=== PATIENT | female | born 1990 | race Caucasian/White ===

== ENCOUNTER 2023-04-05 18:54 | Observation (INO) | payer OTHER, SELFPAY ==
--- NOTE | 2023-04-05 19:06 | PC.NURSE ---
Pt. Arrived to floor with EMT at 19:01
[2023-04-05 19:13] VITALS: BMI 41.5
[2023-04-05 19:23] LABS: Coronavirus 19, PCR Not Detected (NotDetected); Influenza A, PCR Not Detected (NotDetected); Influenza B, PCR Not Detected (NotDetected)
[2023-04-05 19:30] VITALS: BP 143/90; PULSE 98; RESP 16; TEMP 37.4; O2SAT 97
[2023-04-05 19:42] LABS: Basophils % 0.3 % (0.1-2.0); Eosinophils # 0.2 K/mm3 (0.0-0.4); Eosinophils % 1.4 % (0.1-12.0); Hematocrit 44.2 % (37.0-47.0); Hemoglobin 14.6 g/dL (12.2-16.2); Lymphocytes # 1.2 K/mm3 (0.7-4.5); Lymphocytes % 8.3 % (10-50); Mean Corpuscular Hemoglobin 28.8 pg (27.0-31.2); Mean Corpuscular Volume 87.2 fl (81-99); Mean Platelet Volume 9.6 fl (7.4-10.4); Monocytes # 0.4 K/mm3 (0.1-1.0); Monocytes % 2.6 % (1.7-9.3); Neutrophils # 12.3 K/mm3 (1.8-7.8); Neutrophils % 87.4 % (37.0-80.0); Platelet Count 251 K/mm3 (142-424); Red Blood Count 5.06 M/mm3 (4.20-5.40)
[2023-04-05 19:45] LABS: MANUAL DIFFERENTIAL MANUAL DIFFERENTIAL (MANUAL DIFF)
[2023-04-05 19:52] LABS: Alanine Aminotransferase 29 U/L (12-78); Albumin Level 4.5 g/dl (3.5-5.0); Albumin/Globulin Ratio 1.7 (1.1-1.8); Alkaline Phosphatase 73 U/L (38-126); Anion Gap 18.6 mEq/L (5-15); Aspartate Amino Transferase 34 U/L (14-36); Bilirubin,Total 0.6 mg/dl (0.2-1.3); Blood Urea Nitrogen 5 mg/dl (7-17); Carbon Dioxide 24 mmol/L (22.0-30.0); Chloride 101 mmol/L (98-107); Creatinine Clearance Estimated 102 mL/min (50-200); Estimated Glomerular Filt Rate 96 ml/min (>60); GFR (African American) 116 ML/MIN (>60); Globulin 2.6 g/dL (1.3-3.2); Glucose 105 mg/dl (74-100); Magnesium 2.1 mg/dl (1.6-2.3); Potassium 3.6 mmoL/L (3.5-5.1); Sodium 140 mmol/L (136-145); Total Protein,Serum 7.1 g/dl (6.3-8.2)
[2023-04-05 20:00] VITALS: BP 164/93; PULSE 90; PULSE 91; RESP 18; O2SAT 100
[2023-04-05 20:04] LABS: Troponin I < 0.01 ng/ml (0.00-0.034)
[2023-04-05 20:23] LABS: Thyroid Stimulating Hormone 2.58 uIU/mL (0.465-4.68)
[2023-04-05 20:24] LABS: Erythrocyte Sedimentation Rate 3 mm/hr (0-20)
--- NOTE | 2023-04-05 20:28 | EXP.HP ---
History of Present Illness *Admission Date: 04/05/23 *Reason for visit:: Chest pain *History of present illness: This is a very pleasant 33-year-old female with past medical history of untreated hypertension who presents as a transfer from [facility] for further evaluation of elevated troponin. She reports initial visit to the emergency department was related to a bug bite that she had the night before. She reports sitting on a porch around 11:00 last night and felt a sting on her left arm. She reports that it became hot and swollen today so she sought treatment in the emergency department. She also endorses severe emotional distress over the last several weeks due to some life stressors. She denies any homicidal or suicidal ideations. She reports life stressors have revolved around relationship and financial burdens. She states that she has not had untreated hypertension for a while. She was also diagnosed with diabetes when she was younger but has not been on any medications. She reports her A1c has previously been as below 6. She does endorse continued chest tightness that she is unsure if was worse after her bug bite. Work-up at the outside hospital concerning for ST depression on EKG. Troponin mildly elevated at outside hospital at 5 on the high-sensitivity scale. She was noted be tachycardic and hypertensive upon arrival there. She was started on nitro drip and received 2 doses of IV metoprolol. Given the above-mentioned findings, cardiology was consulted and recommended transfer here. She is admitted to the hospital service for further evaluation management. [facility] Disclaimer: The information contained in this section may have been updated after the patient was seen, as this information can be updated by other users. Medical History Anxiety Depressed Hypertension Surgical History (Updated 04/05/23 @ 19:51 by Asia Ferrer RN) Hx laparoscopic cholecystectomy Hx of tubal ligation Ola teeth extracted Family History (Updated 04/05/23 @ 19:54 by Asia Ferrer RN) Cervical cancer Colon cancer Diabetes Hyperlipidemia Lymphoma Melanoma Breast cancer Hypertension Social History (Updated 04/05/23 @ 19:47 by Asia Ferrer RN) Smoking Status: Current every day smoker tobacco type: cigarettes years smoked: 21 quit status: considering quitting alcohol intake: current current occupational status: unemployed Travel in the last 8 weeks: None Review of Systems Constitutional Constitutional: Reports body ache(s) and Reports chills *Cardiovascular Cardiovascular: Reports dyspnea Comments: Chest tightness with radiation to her back *Respiratory Respiratory: Reports dyspnea *Musculoskeletal Musculoskeletal: Reports myalgias Psychiatric Psychiatric: Reports anxiety and Reports depression Meds Home Medications and Allergies Home Medications Medication Instructions Recorded Confirmed Type prazosin 2 mg capsule 2 mg PO DAILY anxiety/drepression 04/05/23 04/05/23 History sertraline 20 mg/mL oral 40 mg PO DAILY Depression 04/05/23 04/05/23 History concentrate (Zoloft) New Prescriptions to Start Prescriptions: Allergies Allergy/AdvReac Type Severity Reaction Status Date / Time diphenhydramine Allergy Difficulty Verified 04/05/23 19:14 [From Benadryl] Breathing Penicillins Allergy Difficulty Verified 04/05/23 19:15 Breathing ondansetron [From Zofran] AdvReac Hives Verified 04/05/23 19:15 Exam Data for Last 24 hours Vital signs and Labs for Last 24 Hours: Laboratory Results - last 24 hr 04/05/23 19:15: SARS-CoV-2 (PCR) Not detected, Influenza A Untype (PCR) Not detected, Influenza Type B (PCR) Not detected 04/05/23 19:30: WBC 14.0 H, RBC 5.06, Hgb 14.6, Hct 44.2, MCV 87.2, MCH 28.8, MCHC 33.0, RDW 14.0, Plt Count 251, MPV 9.6, Neut % (Auto) 87.4 H, Lymph % (Auto) 8.3 L, [place] % (Auto) 2.6, Eos % (Auto) 1
[2023-04-05 20:40] LABS: Lymphocytes % 14 % (10-50); Monocytes % 2 % (2-9); Neutrophils % 83 % (42-76); Platelet Estimate Normal; RBC Morphology Normal; Total Cells Counted 100
[2023-04-05 21:00] VITALS: BP 128/85; PULSE 87; RESP 18; O2SAT 98
[2023-04-05 21:23] LABS: POC Glucose,Bedside 122 (70-110)
[2023-04-05 22:00] VITALS: BP 126/87; PULSE 87; RESP 18; O2SAT 98
[2023-04-05 22:15] LABS: Troponin I < 0.01 ng/ml (0.00-0.034)
[2023-04-06] VITALS: PULSE 70
[2023-04-06 00:44] LABS: Troponin I < 0.01 ng/ml (0.00-0.034)
--- NOTE | 2023-04-06 03:00 | PC.NURSE ---
upon admission pt was anxious. home meds reordered. nitro drip discontinued, nitro paste applied. pt has had no further complaints of chest pain. pt had shower and family remains at bedside. pt has rested well since. VSS.
[2023-04-06 04:00] VITALS: BP 142/76; PULSE 70; PULSE 86; RESP 18; TEMP 36.7; O2SAT 95; BMI 41.8
[2023-04-06 06:48] LABS: POC Glucose,Bedside 171 (70-110)
[2023-04-06 07:56] VITALS: BP 126/77; PULSE 85; RESP 19; TEMP 37.1; O2SAT 96
[2023-04-06 08:00] VITALS: PULSE 80; PULSE 85; O2SAT 96
--- NOTE | 2023-04-06 08:55 | ECG_ITS ---
APPROVED REPORT Exam: Resting ECG HR:67 bpm ECG Measurements Heart Rate 67 AXES DE 164 P 31 QRSd 102 QRS 47 QT 440 T 36 QTc 456 Conclusion SINUS RHYTHM WITH SINUS ARRHYTHMIA NONSPECIFIC T-WAVE ABNORMALITY BORDERLINE ECG UNCONFIRMED REPORT Electronically signed by : Bear Loza MD 04/07/2023 07:35:39
[2023-04-06 09:12] LABS: Eosinophils % 0.2 % (0.1-12.0); Hemoglobin 13.8 g/dL (12.2-16.2); Lymphocytes # 0.7 K/mm3 (0.7-4.5); Lymphocytes % 4.9 % (10-50); Mean Corpuscular HGB Conc 32.9 g/dL (31.8-35.4); Mean Corpuscular Hemoglobin 28.7 pg (27.0-31.2); Mean Corpuscular Volume 87.3 fl (81-99); Monocytes # 0.2 K/mm3 (0.1-1.0); Monocytes % 1.9 % (1.7-9.3); Neutrophils # 12.2 K/mm3 (1.8-7.8); Platelet Count 265 K/mm3 (142-424); Red Blood Count 4.82 M/mm3 (4.20-5.40); Red Cell Distribution Width 14.1 % (11.5-17.5); White Blood Count 13.1 K/mm3 (4.8-10.8)
[2023-04-06 09:17] LABS: MANUAL DIFFERENTIAL MANUAL DIFFERENTIAL (MANUAL DIFF)
[2023-04-06 09:22] LABS: Alanine Aminotransferase 23 U/L (12-78); Albumin Level 4.3 g/dl (3.5-5.0); Albumin/Globulin Ratio 1.7 (1.1-1.8); Alkaline Phosphatase 65 U/L (38-126); Anion Gap 14.8 mEq/L (5-15); Aspartate Amino Transferase 27 U/L (14-36); Bilirubin,Total 0.4 mg/dl (0.2-1.3); Blood Urea Nitrogen 9 mg/dl (7-17); Calcium 8.8 mg/dl (8.4-10.2); Carbon Dioxide 23 mmol/L (22.0-30.0); Chloride 104 mmol/L (98-107); Chol/HDL Ratio 2.6 (1-3.5); Cholesterol 115 mg/dl (140-200); Creatinine Clearance Estimated 114 mL/min (50-200); Estimated Glomerular Filt Rate 114 ml/min (>60); GFR (African American) 138 ML/MIN (>60); Globulin 2.5 g/dL (1.3-3.2); Glucose 134 mg/dl (74-100); HDL Cholesterol 45 mg/dl (40-60); Magnesium 2.1 mg/dl (1.6-2.3); Potassium 3.8 mmoL/L (3.5-5.1); Sodium 138 mmol/L (136-145); Total Protein,Serum 6.8 g/dl (6.3-8.2); Triglycerides 43 mg/dl (30-150); VLDL Cholesterol 9 mg/dL (0-40)
[2023-04-06 09:33] LABS: Direct LDL Cholesterol 73.11 mg/dL (100-129)
--- NOTE | 2023-04-06 10:01 | EXP.DC.SUM ---
General Admission date:: 04/05/23 Discharge date: 04/06/23 HPI HPI HPI: This is a very pleasant 33-year-old female with past medical history of untreated hypertension who presents as a transfer from [facility] for further evaluation of elevated troponin. She reports initial visit to the emergency department was related to a bug bite that she had the night before. She reports sitting on a porch around 11:00 last night and felt a sting on her left arm. She reports that it became hot and swollen today so she sought treatment in the emergency department. She also endorses severe emotional distress over the last several weeks due to some life stressors. She denies any homicidal or suicidal ideations. She reports life stressors have revolved around relationship and financial burdens. She states that she has not had untreated hypertension for a while. She was also diagnosed with diabetes when she was younger but has not been on any medications. She reports her A1c has previously been as below 6. She does endorse continued chest tightness that she is unsure if was worse after her bug bite. Work-up at the outside hospital concerning for ST depression on EKG. Troponin mildly elevated at outside hospital at 5 on the high-sensitivity scale. She was noted be tachycardic and hypertensive upon arrival there. She was started on nitro drip and received 2 doses of IV metoprolol. Given the above-mentioned findings, cardiology was consulted and recommended transfer here. She is admitted to the hospital service for further evaluation management. Hospital Course Hospital Course Hospital Course: This is a 33-year-old female with past medical history of hypertension, who presents as a transfer for further evaluation of EKG changes and chest pain.? On my exam patient is resting comfortably but states that she has been in emotional distress over the last couple weeks.? She also reports being bit by an insect last night.? She states the event that brought her to the emergency department was further evaluation of her insect bite.? Right arm with induration, edema and warmth.? She does endorse chest tightness but states that she is suffering from severe anxiety and depression.? She denies any homicidal or suicidal thoughts and states that she now has resources for outpatient therapy for her anxiety and depression.? She cannot recall if her chest pain is worse after the insect bite, but this was not the deciding factor for her emergency department visit.? I suspect that some of her symptoms are multifactorial and related to anxiety and likely immune mediated response to her insect bite.? We will continue with infectious work-up and cardiac work-up. - Cellulitis of right arm Induration and warmth noted to right tricep and elbow area. Elevated white cell count on admission to [facility]. Suspect this is a source for some of her discomfort and physiologic stress. Initiated on clindamycin. Transition to Bactrim to complete 5 days of antibiotics for cellulitis given her allergy to penicillins. Additionally will complete 2 more days of steroid given improvement overnight and its relation to insect sting or bite. Continue Pepcid twice daily for the next 5 to 7 days as needed to help with itching. - Chest pain Troponin here negative. Repeat EKG with normal sinus rhythm, no T wave inversions. Discussed case with cardiology. This is likely stress-induced chest discomfort from her tachycardia, hypertension, anxiety. We will follow-up with cardiology in the next few weeks for further evaluation and consideration of possible stress test. At this time we will continue aspirin daily. Continue low-dose metoprolol once a day. Reassurance offered. Counseled on smoking cessation and risk modification to decrease risk for coronary artery disease. Of note, reportedly has a history of diabetes when she was a child however A1c obtained and it is normal at 5.0. Offered lakeisha
[2023-04-06 10:07] LABS: Lymphocytes % 6 % (10-50); Monocytes % 2 % (2-9); Neutrophils % 92 % (42-76); Platelet Estimate Normal; RBC Morphology Normal; Total Cells Counted 100
--- NOTE | 2023-04-09 14:19 | CARE MANAGER ---
Attempted post-discharge phone interview, no answer.
== END 2023-04-06 11:27 | disposition home or self-care (01) ==
PROVIDERS: Nurse Practitioner Acute Care; Admitting Provider Internal Medicine Adolescent Medicine; PCP Pediatrics; Visit Provider Internal Medicine Adolescent Medicine
DX: R07.9 Chest pain, unspecified (principal); L03.113 Cellulitis of right upper limb; I10 Essential (primary) hypertension; F32.A Depression, unspecified; F41.9 Anxiety disorder, unspecified; F17.210 Nicotine dependence, cigarettes, uncomplicated
CPT/HCPCS: 36415; 80053; 80061; 82962; 83036; 83605; 83735; 84443; 84484; 85007; 85025; 85651; 87635; 87636; 93005; C9803; G0378; U0003; U0005

== ENCOUNTER → 2023-05-08 07:52 | Outpatient (CLI) | payer OTHER, SELFPAY | PROVIDERS: PCP Pediatrics; Visit Provider Nurse Practitioner | DX: R06.02 Shortness of breath (principal); R07.9 Chest pain, unspecified; I10 Essential (primary) hypertension; E78.5 Hyperlipidemia, unspecified; R60.9 Edema, unspecified; R94.31 Abnormal electrocardiogram [ECG] [EKG] | CPT/HCPCS: 93306 ==

== ENCOUNTER → 2023-05-09 07:55 | Outpatient (CLI) | payer OTHER, SELFPAY ==
--- NOTE | 2023-05-09 07:55 | CA_ITS ---
APPROVED REPORT Exam: Exercise Treadmill Technologist: Leticia Ramos, Ht: 5 ft 5 in Wt: 247 lbs BSA: 2.16 m2 HR: 68 bpm BP: 139/85 mmHg Rhythm: NSR Medical History Medications: Aspirin,,,,, Metoprolol Tartrate,,,,, Famotidine,,,,, Prednisone,,,,, Sertraline,,,,, PraZOSIN,,,,, Stress Test Details Test: Richard HR Resting HR: 83 bpm Max Heart Rate (APMHR): 186 bpm Max HR Achieved: 149 bpm Target HR (85% APMHR): 158 bpm % of APMHR: 80 Recovery HR: 89 bpm HR response to stress: Abnormal HR response to stress BP Resting BP: 149.0/85.0 mmHg Max BP: 170.0/75.0 mmHg Recovery BP: 147.0/74.0 mmHg BP response to stress: Normal blood pressure response to stress. ECG Resting ECG: NSR, sinus arrhythmia, Q-waves and nonspecific ST T wave changes in the inferior lateral leads Stress EC.[address] depression inferolaterally. Arrhythmia: None Recovery ECG: Return to baseline within 3 minutes of recovery Recovery Arrhythmia: None Clinical Exercise duration: 07:00 min Highest Stage Achieved: III Exercise capacity: 10.1 METs Overall Exercise Capacity for Age: Good Stress ECG Conclusion The patient walked for 7:00 on Richard Protocol, achieving 10.1 METS. She exhibited a good exercise capacity compared to age and sex matched peers. She had a blunted HR response but normal BP response to exercise. Max HR: 149 %of PM: 80% Max BP: 170/75 METs: 10.1 Test stopped due to: SOA Symptoms: No CP. Arrhythmias/Ectopy: None ST-T Changes: Baseline ECG demonstrates normal sinus rhythm with Q waves and T wave changes in the inferior lateral leads. At peak stress, there was 0.[address] depression inferolaterally. Conclusion: Suboptimal exercise stress test in the setting of unable to achieve > 85% of max HR. Equivocal EKG changes for HR achieved (80% of PM). Blunted HR response on Beta Shady. Myoview images reported separately. Test Summary REST . . . . . . . Sitting REST . . . . . . . Standing REST 03:13 0.0 0.0 83 . 149/ 85 . . Stage 1 01:00 10.0 1.7 101 . . . . Stage 1 02:00 10.0 1.7 104 . . . . Stage 1 03:00 10.0 1.7 104 . 154/ 86 . . Stage 2 01:00 12.0 2.5 115 . . . . Stage 2 02:00 12.0 2.5 124 . . . . Stage 2 03:00 12.0 2.5 126 . 168/ 88 . . Stage 3 01:00 14.0 3.4 149 . . . Stop exercise at 07:00 RECOVERY 01:00 0.0 0.0 0 . . . . RECOVERY 02:00 0.0 0.0 101 . . . . RECOVERY 03:00 0.0 0.0 92 . . . . RECOVERY 04:00 0.0 0.0 93 . 170/ 75 . . RECOVERY 05:00 0.0 0.0 89 . 170/ 75 . . RECOVERY 06:00 0.0 0.0 100 . 147/ 74 . . RECOVERY 07:00 0.0 0.0 96 . 147/ 74 . . RECOVERY 07:19 0.0 0.0 93 . 147/ 74 . . Electronically signed by : Connie Mack, 05/12/2023 23:37:48
--- NOTE | 2023-05-09 07:55 | NM_ITS ---
APPROVED REPORT Exam: Nuclear Stress Test Indication: HTN, TOB USE, FM HX, C.P., SOB, FATIGUE Patient Location: Outpatient Stress Tech: Leticia Hannah MD Tech:Jocelyne Noriega, ARRT RT(R)(N) Ht: 5 ft 5 in Wt: 242 lbs Bra Size: 42DD HR: 83 bpm BP: 149/85 mmHg BSA: 2.15 m2 Rhythm: NSR TID: 1.16 BMI: 40.2 History: HTN, TOB USE, FM HX, C.P., SOB, FATIGUE Procedure: Patient exercised on Richard protocol 7:00 minutes and sec, resting heart rate 83 bpm, resting blood pressure 149/85 mmHg, with exercise maximum heart rate achived was 149 bpm which is 80 % of the maximum predicted heart rate and blood pressure was 170/75 mmHg. Test was stopped due to SOB. Patient denied any complaint of chest pain. Patient has good exercise capacity, achieved 10.1 METs of workload on treadmill, the blood pressure response to exercise was normal. Cardiac Stress and Resting SPECT Images: Cardiac Stress and Resting SPECT images were obtained using technetium 99m Myoview 32.8 mCi stress and 9.79 mCi at rest. Resting and stress imaging in both supine and prone positions demonstrate a large sized, moderate, fixed perfusion defect in the basal to mid anterior and anteroseptal LV lawton. Gated imaging demonstrates a moderate reduction in global LV systolic function. There is moderate to severe hypokinesis in the anterior and anteroseptal LV lawton. LVEF is calculated at 38%. Conclusion: Large sized, moderate, fixed perfusion defect in the basal to mid anterior and anteroseptal LV lawton. No evidence of reversible ischemia. Gated imaging demonstrates a moderate reduction in global LV systolic function. There is moderate to severe hypokinesis in the anterior and anteroseptal LV lawton. LVEF is calculated at 38%. Electronically signed by : Connie Mack, 05/12/2023 23:41:48
== END ==
PROVIDERS: PCP Pediatrics; Visit Provider Nurse Practitioner
DX: R06.02 Shortness of breath (principal); R07.9 Chest pain, unspecified; I10 Essential (primary) hypertension; E78.5 Hyperlipidemia, unspecified; R60.9 Edema, unspecified; R94.31 Abnormal electrocardiogram [ECG] [EKG]
CPT/HCPCS: 78452; 93017; A9502

== ENCOUNTER 2023-06-04 08:16 | Outpatient (CLI) | payer OTHER, SELFPAY ==
[2023-06-04 08:33] VITALS: BMI 41.1
[2023-06-04 08:34] VITALS: BP 126/71; PULSE 74; RESP 18; TEMP 36.7; O2SAT 99
[2023-06-04 08:49] LABS: Basophils % 0.5 % (0.1-2.0); Eosinophils # 0.2 K/mm3 (0.0-0.4); Eosinophils % 2.8 % (0.1-12.0); Hematocrit 42.7 % (37.0-47.0); Lymphocytes % 26.3 % (10-50); Mean Corpuscular HGB Conc 32.9 g/dL (31.8-35.4); Mean Corpuscular Hemoglobin 28.2 pg (27.0-31.2); Mean Corpuscular Volume 85.9 fl (81-99); Mean Platelet Volume 10.2 fl (7.4-10.4); Monocytes # 0.4 K/mm3 (0.1-1.0); Monocytes % 5.3 % (1.7-9.3); Neutrophils # 4.9 K/mm3 (1.8-7.8); Neutrophils % 65.2 % (37.0-80.0); Platelet Count 212 K/mm3 (142-424); Red Blood Count 4.97 M/mm3 (4.20-5.40); Red Cell Distribution Width 13.9 % (11.5-17.5); White Blood Count 7.5 K/mm3 (4.8-10.8)
[2023-06-04 09:01] LABS: Anion Gap 9.4 mEq/L (5-15); Blood Urea Nitrogen 14 mg/dl (7-17); Calcium 8.8 mg/dl (8.4-10.2); Carbon Dioxide 29 mmol/L (22.0-30.0); Chloride 105 mmol/L (98-107); Creatinine Clearance Estimated 200 mL/min (50-200); Estimated Glomerular Filt Rate 96 ml/min (>60); GFR (African American) 116 ML/MIN (>60); Glucose 101 mg/dl (74-100); Potassium 3.4 mmoL/L (3.5-5.1); Sodium 140 mmol/L (136-145)
[2023-06-04 09:15] VITALS: BP 126/73; PULSE 64; RESP 18; O2SAT 99
--- NOTE | 2023-06-04 09:18 | PC.NURSE ---
VSS, no C/O, waiting on radiology staff to get pt. HR 56-62
[2023-06-04 09:41] VITALS: BP 132/92; PULSE 66; RESP 18; O2SAT 99
--- NOTE | 2023-06-04 09:41 | PC.NURSE ---
Pt arrived to CT room and is lying on table.
[2023-06-04 09:52] VITALS: BP 126/70; PULSE 65; RESP 18; O2SAT 99
--- NOTE | 2023-06-04 09:52 | PC.NURSE ---
Scan complete, pt tolerated well.
== END 2023-06-04 10:00 | disposition home or self-care (01) ==
LOC: RAD 08:16
PROVIDERS: PCP Pediatrics; Visit Provider Physician Assistant
DX: R07.9 Chest pain, unspecified (principal); I10 Essential (primary) hypertension; E78.5 Hyperlipidemia, unspecified; R60.9 Edema, unspecified; R94.31 Abnormal electrocardiogram [ECG] [EKG]; R94.39 Abnormal result of other cardiovascular function study
CPT/HCPCS: 75574; 80048; 85025; Q9967

== ENCOUNTER → 2023-07-03 09:07 | Outpatient (CLI) | payer OTHER, SELFPAY ==
[2023-07-03 10:26] LABS: Anion Gap 13.1 mEq/L (5-15); Blood Urea Nitrogen 13 mg/dl (7-17); Calcium 9.1 mg/dl (8.4-10.2); Carbon Dioxide 27 mmol/L (22.0-30.0); Chloride 105 mmol/L (98-107); Estimated Glomerular Filt Rate 114 ml/min (>60); GFR (African American) 138 ML/MIN (>60); Glucose 100 mg/dl (74-100); Potassium 4.1 mmoL/L (3.5-5.1); Sodium 141 mmol/L (136-145)
== END ==
PROVIDERS: PCP Pediatrics; Visit Provider Physician Assistant
DX: E87.6 Hypokalemia (principal)
CPT/HCPCS: 36415; 80048

== ENCOUNTER 2023-07-05 10:26 | Day surgery (SDC) | payer OTHER, SELFPAY ==
[2023-07-05] VITALS (12 sets, daily range): BP systolic 100–138; BP diastolic 59–86; PULSE 68–80; RESP 16–20; O2SAT 68–99; BMI 40.7
--- NOTE | 2023-07-05 | IR_ITS ---
APPROVED REPORT Patient Location: Outpatient Computer System Specialist: ELIJAH Forte RT (R) PROCEDURES Left heart catheterization Left ventriculogram Selective coronary angiogram INDICATION Abnormal echocardiogram, Systolic congestive heart failure, Abnormal Myoview, Angina pectoris, Informed consent was obtained prior to the procedure. COMPLICATIONS None Estimated Blood Loss: Less than 10 mls TECHNIQUE One percent lidocaine used to anesthetize the right anterior aspect of the wrist. The right radial artery was accessed via the Seldinger technique. A 6 Kosovan sheath was placed in the right radial artery. 2.5 mg of Verapamil, 800 mcg of nitroglycerin, 1mg Lidocaine and 5000 U Heparin were given through the arterial sheath. The papa catheter was also used to perform left heart catheterization, left ventriculogram and selective coronary angiogram. At the end of the procedure the sheath was removed good hemostasis was achieved using Traclet band, patient was transferred to the postop holding area in stable condition. ANGIOGRAPHIC RESULTS The left main artery Normal The left anterior descending artery Normal The circumflex artery Normal The right coronary artery Dominant normal The PLASENCIA ventriculogram reveals Normal 65% The left ventricular end-diastolic pressure 25 mmHg IMPRESSION Normal coronary arteries Normal ejection fraction Elevated LVEDP consistent with diastolic dysfunction PLAN 1. Treatment of diastolic dysfunction 2. Recommend sleep study Electronically signed by : Krishna Crum MD 07/05/2023 12:08:33
[2023-07-05 11:07] LABS: Basophils % 0.6 % (0.1-2.0); Eosinophils # 0.1 K/mm3 (0.0-0.4); Eosinophils % 1.9 % (0.1-12.0); Hematocrit 45.3 % (37.0-47.0); Hemoglobin 14.8 g/dL (12.2-16.2); Lymphocytes # 1.6 K/mm3 (0.7-4.5); Lymphocytes % 24.8 % (10-50); Mean Corpuscular HGB Conc 32.6 g/dL (31.8-35.4); Mean Corpuscular Hemoglobin 28.6 pg (27.0-31.2); Mean Corpuscular Volume 87.7 fl (81-99); Monocytes # 0.3 K/mm3 (0.1-1.0); Monocytes % 5.2 % (1.7-9.3); Neutrophils # 4.3 K/mm3 (1.8-7.8); Neutrophils % 67.4 % (37.0-80.0); Platelet Count 229 K/mm3 (142-424); Red Blood Count 5.16 M/mm3 (4.20-5.40); White Blood Count 6.3 K/mm3 (4.8-10.8)
[2023-07-05 11:20] LABS: Chloride 104 mmol/L (98-107); Potassium 3.8 mmoL/L (3.5-5.1); Sodium 141 mmol/L (136-145)
[2023-07-05 11:23] LABS: Anion Gap 12.8 mEq/L (5-15); Blood Urea Nitrogen 12 mg/dl (7-17); Calcium 9.4 mg/dl (8.4-10.2); Carbon Dioxide 28 mmol/L (22.0-30.0); Creatinine Clearance Estimated 232 mL/min (50-200); Estimated Glomerular Filt Rate 114 ml/min (>60); GFR (African American) 138 ML/MIN (>60); Glucose 98 mg/dl (74-100)
== END 2023-07-05 14:43 | disposition home or self-care (01) ==
PROVIDERS: PCP Pediatrics; Visit Provider Internal Medicine
DX: I25.118 Atherosclerotic heart disease of native coronary artery with other forms of angina pectoris (principal); R94.39 Abnormal result of other cardiovascular function study; I50.22 Chronic systolic (congestive) heart failure; F17.210 Nicotine dependence, cigarettes, uncomplicated; I11.0 Hypertensive heart disease with heart failure
CPT/HCPCS: 80048; 85025; 93458; 99152; C1725; C1760; C1769; J1644; Q9967

== ENCOUNTER 2024-02-25 09:40 | Outpatient (CLI) | payer OTHER, SELFPAY ==
[2024-02-25 10:38] LABS: Basophils # 0.1 K/mm3 (0-0.2); Basophils % 1.1 % (0.1-2.0); Eosinophils # 0.1 K/mm3 (0.0-0.4); Hematocrit 44.3 % (37.0-47.0); Hemoglobin 14.3 g/dL (12.2-16.2); Lymphocytes # 1.8 K/mm3 (0.7-4.5); Lymphocytes % 23.6 % (10-50); Mean Corpuscular HGB Conc 32.2 g/dL (31.8-35.4); Mean Platelet Volume 9.7 fl (7.4-10.4); Monocytes # 0.3 K/mm3 (0.1-1.0); Monocytes % 4.5 % (1.7-9.3); Neutrophils # 5.3 K/mm3 (1.8-7.8); Neutrophils % 69.9 % (37.0-80.0); Platelet Count 236 K/mm3 (142-424); Red Blood Count 4.93 M/mm3 (4.20-5.40); White Blood Count 7.6 K/mm3 (4.8-10.8)
[2024-02-25 10:54] LABS: Hemoglobin A1C 5.3 % (4.0-6.0)
[2024-02-25 11:31] LABS: Alanine Aminotransferase 25 U/L (12-78); Albumin Level 4.5 g/dl (3.5-5.0); Alkaline Phosphatase 65 U/L (38-126); Anion Gap 11.1 mEq/L (5-15); Aspartate Amino Transferase 34 U/L (14-36); Bilirubin,Direct 0.1 mg/dl (0.0-0.4); Bilirubin,Indirect 0.5 mg/dL (0.0-0.9); Bilirubin,Total 0.6 mg/dl (0.2-1.3); Bilirubin,Unconjugated 0.5 mg/dL (0.0-1.1); Blood Urea Nitrogen 14 mg/dl (7-17); Calcium 9.5 mg/dl (8.4-10.2); Carbon Dioxide 24 mmol/L (22.0-30.0); Chloride 107 mmol/L (98-107); Chol/HDL Ratio 4.6 (1-3.5); Cholesterol 157 mg/dl (140-200); Estimated Glomerular Filt Rate 114 ml/min (>60); GFR (African American) 138 ML/MIN (>60); Glucose 99 mg/dl (74-100); HDL Cholesterol 34 mg/dl (40-60); Magnesium 2.1 mg/dl (1.6-2.3); Potassium 4.1 mmoL/L (3.5-5.1); Sodium 138 mmol/L (136-145); Total Protein,Serum 6.9 g/dl (6.3-8.2); Triglycerides 138 mg/dl (30-150); VLDL Cholesterol 28 mg/dL (0-40)
[2024-02-25 11:42] LABS: Direct LDL Cholesterol 91.13 mg/dL (100-129)
[2024-02-25 11:46] LABS: Free T4 (Free Thyroxine) 1.11 ng/dl (0.78-2.19)
[2024-02-25 12:03] LABS: Thyroid Stimulating Hormone 2.61 uIU/mL (0.465-4.68)
== END 2024-02-25 23:59 | disposition home or self-care (01) ==
LOC: LAB 09:41
PROVIDERS: Visit Provider Nurse Practitioner
DX: R53.83 Other fatigue (principal); R94.31 Abnormal electrocardiogram [ECG] [EKG]; E78.5 Hyperlipidemia, unspecified; I10 Essential (primary) hypertension; R60.9 Edema, unspecified; G47.33 Obstructive sleep apnea (adult) (pediatric); R06.83 Snoring; Z13.1 Encounter for screening for diabetes mellitus; F17.210 Nicotine dependence, cigarettes, uncomplicated
CPT/HCPCS: 36415; 80048; 80061; 80076; 83036; 83735; 84439; 84443; 85025

== ENCOUNTER 2024-03-17 08:27 | Outpatient (CLI) | payer OTHER, SELFPAY ==
--- NOTE | 2024-03-17 08:28 | CA_ITS ---
FINAL REPORT TECHNIQUE: Spectral and color Doppler exam CLINICAL HISTORY: htn, obesity COMPARISON: None FINDINGS: DOPPLER RENAL VESSELS HISTORY: Hypertension . FINDINGS: Intrarenal resistive indices on the right are between 0.6 and 0.7, normal . Intrarenal resistive indices on the left are 0.6 and 0.68, normal . Renal size is normal and symmetric. Right main renal artery systolic velocity: 160 cm/sec. Aortic-right renal artery flow velocity ratio: 2.2 COMMENT: No evidence of hemodynamically significant renal artery stenosis . Left main renal artery systolic velocity: 160 cm/sec. Aortic-left renal artery flow velocity ratio: 1.5 COMMENT: No evidence of hemodynamically significant renal artery stenosis . IMPRESSION: No evidence of hemodynamically significant renal artery stenosis CTA or gadolinium-enhanced MR may be considered as a more sensitive exam. Alternatively noncontrast MRI may be considered for assessing main renal arteries for stenosis as a more sensitive exam if the patient has renal insufficiency. Reviewed, Interpreted and Dictated by Jasson Acosta MD Transcribed by Neva Garcia Authenticated and [facility]
--- NOTE | 2024-03-17 08:49 | US_ITS ---
FINAL REPORT TECHNIQUE: Ultrasound images of the kidneys and bladder were obtained. CLINICAL HISTORY: G47.33 - Obstructive sleep apnea (adult) (pediatric) FINDINGS: The right kidney measures 10.3 cm in length. It is normal in echogenicity. There is no hydronephrosis. The left kidney measures 10.9 cm in length. It is normal in echogenicity. There is no hydronephrosis. The spleen is unremarkable. IMPRESSION: No hydronephrosis. Reviewed, Interpreted and Dictated by Jasson Acosta MD Transcribed by Amy Doan Authenticated and [facility]
== END 2024-03-17 23:59 | disposition home or self-care (01) ==
LOC: RT 08:28
PROVIDERS: PCP Pediatrics; Visit Provider Nurse Practitioner
DX: R94.31 Abnormal electrocardiogram [ECG] [EKG] (principal); R53.83 Other fatigue; I10 Essential (primary) hypertension; R60.9 Edema, unspecified; E78.5 Hyperlipidemia, unspecified; G47.33 Obstructive sleep apnea (adult) (pediatric); R06.83 Snoring; F17.210 Nicotine dependence, cigarettes, uncomplicated
CPT/HCPCS: 76770; 93976